=== PATIENT | male | born 1980 | race Caucasian/White ===

== ENCOUNTER 2024-04-06 18:11 | Inpatient (IN) | payer OTHER, SELFPAY ==
[~2024-04-06] VITALS: Ht 188 cm; Wt 64.4 kg
[2024-04-06] MEDS: THIAMINE 100 MG TAB PO SCH (04:13)
[2024-04-06] MEDS: NS 1,000 ML IV ONE (20:32)
[2024-04-06 20:33] LABS: BASO % 0.2 % (0.0-1.0); EOS # 0.1 10^3/uL (0.0-0.5); EOS % 0.3 % (0.0-3.0); HEMATOCRIT 37.1 % (42.0-52.0); LYMPH # 1.7 10^3/uL (1.5-5.0); LYMPH % 8.3 % (24.0-44.0); MEAN CORPUSCULAR HEMOGLOBIN 30.4 pg (27.0-33.0); MEAN CORPUSCULAR VOLUME 86.7 fl (80.0-96.0); MONO # 2.3 10^3/uL (0.0-0.8); MONO % 11.1 % (2.0-8.0); NEUTROPHILS # 16.5 10^3/uL (1.5-8.5); NEUTROPHILS % 79.4 % (36.0-66.0); PLATELET COUNT, AUTOMATED 448 10^3/uL (150-450); RED BLOOD COUNT 4.28 10^6/uL (4.30-6.10); WHITE BLOOD COUNT 20.8 10^3/uL (4.0-10.0)
[2024-04-06] MEDS: LORazepam 2 MG/ML 1ML VIAL IV STA (20:34)
[2024-04-06] MEDS: KETOROLAC 30 MG/ML 1ML VIAL IV ONE (20:34)
[2024-04-06 21:00] LABS: C REACTIVE PROTEIN QUANTITATIV 24.6 MG/DL (<1.0)
[2024-04-06 21:01] LABS: ALBUMIN 2.9 G/DL (3.2-5.2); BILIRUBIN,DIRECT 0.2 MG/DL (<0.4); BILIRUBIN,TOTAL 0.5 MG/DL (0.3-1.2); TOTAL PROTEIN 7.3 G/DL (5.7-8.2)
[2024-04-06] MEDS: CEFTAROLINE FOSAMIL 600 MG in D5W MINI-BAG PLUS 50 ML IV ONE (21:31)
[2024-04-06] MEDS ORDERED: ACETAMINOPHEN 325 MG TAB As Ordered ONE (21:53)
[2024-04-06] MEDS: ACETAMINOPHEN TAB 650MG DOSE (2X325MG) PO ONE (21:55)
[2024-04-06 23:02] LABS: PROCALCITONIN 0.43 ng/ml
[2024-04-07] MEDS ORDERED: HOME MED LIST COMPLETE! XX SCH (00:15)
[2024-04-07] MEDS ORDERED: LORazepam 2 MG TAB PO PRN (01:05)
[2024-04-07 04:21] VITALS: BP 137/67; TEMP 97.5; O2SAT 100
[2024-04-07 04:29] LABS: BASO # 0.1 10^3/uL (0.0-0.2); BASO % 0.2 % (0.0-1.0); EOS # 0.3 10^3/uL (0.0-0.5); EOS % 1.3 % (0.0-3.0); HEMATOCRIT 33.2 % (42.0-52.0); HEMOGLOBIN 11.5 g/dl (13.5-17.5); LYMPH # 2.4 10^3/uL (1.5-5.0); LYMPH % 10.9 % (24.0-44.0); MEAN CORPUSCULAR HEMOGLOBIN 30.3 pg (27.0-33.0); MEAN CORPUSCULAR HGB CONC 34.6 g/dl (32.0-36.5); MEAN CORPUSCULAR VOLUME 87.4 fl (80.0-96.0); MONO % 12.4 % (2.0-8.0); NEUTROPHILS # 16.4 10^3/uL (1.5-8.5); NEUTROPHILS % 74.6 % (36.0-66.0); PLATELET COUNT, AUTOMATED 441 10^3/uL (150-450)
[2024-04-07 04:41] LABS: BLOOD UREA NITROGEN 12 MG/DL (9-23); CALCIUM LEVEL 8.9 MG/DL (8.5-10.1); CARBON DIOXIDE LEVEL 30 MMOL/L (20-31); CHLORIDE LEVEL 98 MMOL/L (98-107); GLOMERULAR FILTRATION RATE > 60.0 (>60); GLUCOSE, FASTING 126 MG/DL (60-100); MAGNESIUM LEVEL 2.3 MG/DL (1.8-2.4); POTASSIUM SERUM 4.3 MMOL/L (3.5-5.1); SODIUM LEVEL 132 MMOL/L (136-145)
[2024-04-07 04:47] LABS: MONO # 2.7 10^3/uL (0.0-0.8)
[2024-04-07 05:30] LABS: BARBITURATES URINE NEGATIVE (NEGATIVE); BENZODIAZEPINES URINE NEGATIVE (NEGATIVE); CANNABINOIDS URINE NEGATIVE (NEGATIVE); COCAINE METABOLITE URINE NEGATIVE (NEGATIVE); OPIATES URINE NEGATIVE (NEGATIVE); PHENCYCLIDINE URINE NEGATIVE (NEGATIVE)
[2024-04-07 05:36] LABS: AMPHETAMINES LEVEL URINE POSITIVE (NEGATIVE); METHADONE URINE POSITIVE (NEGATIVE)
[2024-04-07] MEDS ORDERED: NICOTINE 14 MG/24 HR TRANSDERMAL TD PRN (06:20)
[2024-04-07] MEDS ORDERED: NICOTINE 21MG/24HR 1 EA TRANSDERMAL TD PRN (06:30)
[2024-04-07] MEDS ORDERED: KETOROLAC 30 MG/ML 1ML VIAL IV PRN (06:30)
[2024-04-07] MEDS: KETOROLAC 30 MG/ML 1ML VIAL IV PRN (06:55)
[2024-04-07] MEDS: LIDOCAINE W/EPINEPHRINE 1% 20ML VIAL SC ONE (07:16)
[2024-04-07] MEDS: MORPHINE 4 MG/ML 1ML VIAL IV ONE (07:53)
[2024-04-07] MEDS: MULTIVITAMINS/MINERALS THERAP 1 TAB PO SCH (08:08)
[2024-04-07] MEDS: FOLIC ACID 1MG TAB PO SCH (08:08)
[2024-04-07] MEDS: HEPARIN SOD (PORCINE) 5000UNITS/ML 1ML VIAL/SYRINGE SQ SCH (08:08)
[2024-04-07] MEDS: NICOTINE 21MG/24HR 1 EA TRANSDERMAL TD SCH (08:09)
[2024-04-07 10:34] LABS: ERYTHROCYTE SEDIMENTATION RATE 87 mm/hr (0-15)
[2024-04-07] MEDS: NS 1,000 ML IV SCH (10:55)
[2024-04-07] MEDS: CEFTAROLINE FOSAMIL 600 MG in D5W MINI-BAG PLUS 50 ML IV SCH (11:04)
[2024-04-07 12:00] VITALS: BP 90/57; TEMP 97.3; O2SAT 98
[2024-04-07 14:00] VITALS: BP 95/58
[2024-04-07] MEDS: ACETAMINOPHEN 500 MG TAB PO ONE (16:20)
[2024-04-07] MEDS: LORazepam 0.5 MG TAB PO ONE (16:20)
[2024-04-07 20:15] VITALS: BP 100/60; TEMP 98; O2SAT 98
[2024-04-07 23:35] VITALS: BP 102/61; TEMP 98.7; O2SAT 98
[2024-04-08] VITALS (9 sets, daily range): BP systolic 104–142; BP diastolic 61–90; TEMP 97.3–98.4; O2SAT 94–98
[2024-04-08] MEDS ORDERED: oxyCODONE 5MG TAB PO PRN (03:30)
[2024-04-08] MEDS ORDERED: fentaNYL 100 MCG/2 ML INJECTION IV PRN (03:30)
[2024-04-08] MEDS ORDERED: MEPERIDINE 25 MG/ML 1ML VIAL IV PRN (03:30)
[2024-04-08] MEDS ORDERED: ONDANSETRON 4MG 2ML VIAL IV PRN ×2 (03:30→09:20)
[2024-04-08] MEDS ORDERED: HYDROMORPHONE HCL 0.5 MG/ 0.5 ML SYRINGE IV PRN (03:30)
[2024-04-08 06:05] LABS: HEMATOCRIT 31.8 % (42.0-52.0); HEMOGLOBIN 10.6 g/dl (13.5-17.5); MEAN CORPUSCULAR HEMOGLOBIN 29.9 pg (27.0-33.0); MEAN CORPUSCULAR HGB CONC 33.3 g/dl (32.0-36.5); MEAN CORPUSCULAR VOLUME 89.8 fl (80.0-96.0); PLATELET COUNT, AUTOMATED 437 10^3/uL (150-450); RED BLOOD COUNT 3.54 10^6/uL (4.30-6.10)
[2024-04-08 06:43] LABS: BLOOD UREA NITROGEN 8 MG/DL (9-23); CALCIUM LEVEL 7.9 MG/DL (8.5-10.1); CARBON DIOXIDE LEVEL 29 MMOL/L (20-31); CHLORIDE LEVEL 105 MMOL/L (98-107); CREATININE FOR GFR 0.65 MG/DL (0.70-1.30); GLOMERULAR FILTRATION RATE > 60.0 (>60); GLUCOSE, FASTING 102 MG/DL (60-100); POTASSIUM SERUM 3.4 MMOL/L (3.5-5.1); SODIUM LEVEL 139 MMOL/L (136-145)
[2024-04-08] MEDS ORDERED: MIDAZOLAM INJ 2MG/2ML VIAL As Ordered ONE (08:19)
[2024-04-08] MEDS ORDERED: dexmedeTOMIDine (4MCG/ML)200MCG/50ML BTL (PRECEDEX) As Ordered ONE (08:19)
[2024-04-08] MEDS ORDERED: fentaNYL 100 MCG/2 ML INJECTION As Ordered ONE (08:19)
[2024-04-08] MEDS ORDERED: LIDOCAINE 2% 100MG/5ML SDV (FOR ANES.) As Ordered ONE (08:19)
[2024-04-08] MEDS ORDERED: ONDANSETRON 4MG 2ML VIAL As Ordered ONE (08:19)
[2024-04-08] MEDS ORDERED: propofoL 200 MG/20 ML VIAL As Ordered ONE (08:19)
[2024-04-08] MEDS ORDERED: ACETAMINOPHEN 1000MG 100ML IV BAG As Ordered ONE (08:23)
[2024-04-08] MEDS ORDERED: HYDROmorphone HCL 2MG/ML 1ML VIAL As Ordered ONE (08:24)
[2024-04-08] MEDS: fentaNYL 100 MCG/2 ML INJECTION IV PRN (09:12)
[2024-04-08] MEDS: LR 1,000 ML IV SCH (09:20)
[2024-04-08] MEDS: oxyCODONE 5MG TAB PO PRN (09:29)
[2024-04-08] MEDS: HYDROMORPHONE HCL 0.5 MG/ 0.5 ML SYRINGE IV PRN ×2 (09:30→17:53)
[2024-04-08] MEDS ORDERED: MEPERIDINE 25 MG/ML 1ML VIAL As Ordered ONE (10:03)
[2024-04-08] MEDS: MEPERIDINE 25 MG/ML 1ML VIAL IV STA (10:05)
[2024-04-08] MEDS: POTASSIUM CHLORIDE 10MEQ SR TABLET PO ONE (10:21)
[2024-04-08] MEDS: PANTOPRAZOLE 40MG TAB (PROTONIX) PO SCH (13:58)
[2024-04-09 01:08] VITALS: BP 126/87; TEMP 98.7; O2SAT 99
[2024-04-09 04:45] VITALS: BP 128/86; TEMP 97.6; O2SAT 95
[2024-04-09 05:56] LABS: HEMATOCRIT 29.3 % (42.0-52.0); MEAN CORPUSCULAR HEMOGLOBIN 30.2 pg (27.0-33.0); MEAN CORPUSCULAR HGB CONC 34.1 g/dl (32.0-36.5); MEAN CORPUSCULAR VOLUME 88.5 fl (80.0-96.0); PLATELET COUNT, AUTOMATED 478 10^3/uL (150-450); RED BLOOD COUNT 3.31 10^6/uL (4.30-6.10); WHITE BLOOD COUNT 16.8 10^3/uL (4.0-10.0)
[2024-04-09 06:22] LABS: BLOOD UREA NITROGEN 10 MG/DL (9-23); CALCIUM LEVEL 8.4 MG/DL (8.5-10.1); CARBON DIOXIDE LEVEL 26 MMOL/L (20-31); CHLORIDE LEVEL 105 MMOL/L (98-107); CREATININE FOR GFR 0.57 MG/DL (0.70-1.30); GLOMERULAR FILTRATION RATE > 60.0 (>60); GLUCOSE, FASTING 99 MG/DL (60-100); POTASSIUM SERUM 3.8 MMOL/L (3.5-5.1); SODIUM LEVEL 137 MMOL/L (136-145)
[2024-04-09 08:00] VITALS: BP 128/86; TEMP 97.3; O2SAT 98
[2024-04-09] MEDS ORDERED: DOCUSATE SODIUM 100MG CAPSULE PO PRN (08:50)
[2024-04-09 12:00] VITALS: BP 128/86; TEMP 97.3; O2SAT 98
[2024-04-09] MEDS: KETOROLAC TROMETHAMINE 10 MG TAB PO PRN (18:07)
[2024-04-09 20:00] VITALS: BP 130/89; TEMP 97.3; O2SAT 98
[2024-04-10] VITALS (12 sets, daily range): BP systolic 114–134; BP diastolic 73–84; TEMP 96.8–97.5; O2SAT 95–100
[2024-04-10] MEDS: HYDROMORPHONE HCL 0.5 MG/ 0.5 ML SYRINGE IV PRN (00:17)
[2024-04-10 07:23] LABS: HEMATOCRIT 33.9 % (42.0-52.0); HEMOGLOBIN 11.5 g/dl (13.5-17.5); MEAN CORPUSCULAR HEMOGLOBIN 30.1 pg (27.0-33.0); MEAN CORPUSCULAR HGB CONC 33.9 g/dl (32.0-36.5); MEAN CORPUSCULAR VOLUME 88.7 fl (80.0-96.0); PLATELET COUNT, AUTOMATED 569 10^3/uL (150-450); RED BLOOD COUNT 3.82 10^6/uL (4.30-6.10); WHITE BLOOD COUNT 11.9 10^3/uL (4.0-10.0)
[2024-04-10 07:45] LABS: BLOOD UREA NITROGEN 9 MG/DL (9-23); CALCIUM LEVEL 9.3 MG/DL (8.5-10.1); CARBON DIOXIDE LEVEL 28 MMOL/L (20-31); CHLORIDE LEVEL 105 MMOL/L (98-107); CREATININE FOR GFR 0.56 MG/DL (0.70-1.30); GLOMERULAR FILTRATION RATE > 60.0 (>60); GLUCOSE, FASTING 109 MG/DL (60-100); POTASSIUM SERUM 3.8 MMOL/L (3.5-5.1); SODIUM LEVEL 140 MMOL/L (136-145)
[2024-04-10] MEDS ORDERED: oxyCODONE 5MG TAB PO PRN (17:10)
[2024-04-10] MEDS ORDERED: fentaNYL 100 MCG/2 ML INJECTION IV PRN (17:10)
[2024-04-10] MEDS ORDERED: HYDROMORPHONE HCL 0.5 MG/ 0.5 ML SYRINGE IV PRN (17:10)
[2024-04-10] MEDS: LR 1,000 ML IV SCH (17:10)
[2024-04-10] MEDS ORDERED: ONDANSETRON 4MG 2ML VIAL IV PRN (17:10)
[2024-04-10] MEDS: cefTRIAXone SOD 1 GM in D5W MINI-BAG PLUS 50 ML IV SCH (20:17)
[2024-04-11 03:21] VITALS: BP 127/82; TEMP 97.2; O2SAT 97
[2024-04-11 05:28] LABS: HEMATOCRIT 33.4 % (42.0-52.0); HEMOGLOBIN 11.4 g/dl (13.5-17.5); MEAN CORPUSCULAR HEMOGLOBIN 29.8 pg (27.0-33.0); MEAN CORPUSCULAR HGB CONC 34.1 g/dl (32.0-36.5); MEAN CORPUSCULAR VOLUME 87.4 fl (80.0-96.0); PLATELET COUNT, AUTOMATED 573 10^3/uL (150-450); RED BLOOD COUNT 3.82 10^6/uL (4.30-6.10); WHITE BLOOD COUNT 17.6 10^3/uL (4.0-10.0)
[2024-04-11 06:00] LABS: BLOOD UREA NITROGEN 11 MG/DL (9-23); CALCIUM LEVEL 9.1 MG/DL (8.5-10.1); CARBON DIOXIDE LEVEL 31 MMOL/L (20-31); CHLORIDE LEVEL 101 MMOL/L (98-107); CREATININE FOR GFR 0.64 MG/DL (0.70-1.30); GLOMERULAR FILTRATION RATE > 60.0 (>60); GLUCOSE, FASTING 105 MG/DL (60-100); POTASSIUM SERUM 4.4 MMOL/L (3.5-5.1); SODIUM LEVEL 137 MMOL/L (136-145)
[2024-04-11 11:12] VITALS: BP 116/70; TEMP 97.5; O2SAT 96
[2024-04-11] MEDS: PERCOCET 5MG/325MG TAB PO PRN (12:36)
[2024-04-11 15:19] VITALS: BP 128/85; TEMP 98.1; O2SAT 98
[2024-04-11 20:27] VITALS: BP 131/84; TEMP 98.1; O2SAT 96
[2024-04-11] MEDS: RAMELTEON 8 MG TAB (ROZEREM) PO PRN (20:45)
[2024-04-12] MEDS ORDERED: PERMETHRIN 5% CREAM 60 GM TOP SCH
[2024-04-12 04:44] VITALS: BP 116/80; TEMP 97.9; O2SAT 98
[2024-04-12 06:20] LABS: HEMATOCRIT 34.2 % (42.0-52.0); HEMOGLOBIN 11.3 g/dl (13.5-17.5); MEAN CORPUSCULAR HEMOGLOBIN 29.7 pg (27.0-33.0); PLATELET COUNT, AUTOMATED 605 10^3/uL (150-450); WHITE BLOOD COUNT 12.7 10^3/uL (4.0-10.0)
[2024-04-12 06:56] LABS: BLOOD UREA NITROGEN 15 MG/DL (9-23); CARBON DIOXIDE LEVEL 32 MMOL/L (20-31); CHLORIDE LEVEL 105 MMOL/L (98-107); CREATININE FOR GFR 0.88 MG/DL (0.70-1.30); GLOMERULAR FILTRATION RATE > 60.0 (>60); GLUCOSE, FASTING 98 MG/DL (60-100); POTASSIUM SERUM 4.4 MMOL/L (3.5-5.1); SODIUM LEVEL 140 MMOL/L (136-145)
[2024-04-12 12:00] VITALS: BP 130/85; TEMP 97.7; O2SAT 98
[2024-04-12] MEDS: PERMETHRIN 5% CREAM 60 GM TOP ONE (17:04)
[2024-04-12 19:48] VITALS: BP 128/84; TEMP 97.9; O2SAT 98
[2024-04-12] MEDS: CEFDINIR 300 MG CAP (OMNICEF) PO SCH (20:15)
[2024-04-13 04:08] VITALS: BP 126/82; TEMP 97.7; O2SAT 97
[2024-04-13 06:15] LABS: HEMATOCRIT 34.1 % (42.0-52.0); HEMOGLOBIN 11.4 g/dl (13.5-17.5); MEAN CORPUSCULAR HGB CONC 33.4 g/dl (32.0-36.5); MEAN CORPUSCULAR VOLUME 89.7 fl (80.0-96.0); PLATELET COUNT, AUTOMATED 596 10^3/uL (150-450); WHITE BLOOD COUNT 17.3 10^3/uL (4.0-10.0)
[2024-04-13 06:40] LABS: BLOOD UREA NITROGEN 18 MG/DL (9-23); CALCIUM LEVEL 8.8 MG/DL (8.5-10.1); CARBON DIOXIDE LEVEL 32 MMOL/L (20-31); CHLORIDE LEVEL 101 MMOL/L (98-107); CREATININE FOR GFR 0.67 MG/DL (0.70-1.30); GLOMERULAR FILTRATION RATE > 60.0 (>60); GLUCOSE, FASTING 103 MG/DL (60-100); POTASSIUM SERUM 4.2 MMOL/L (3.5-5.1); SODIUM LEVEL 136 MMOL/L (136-145)
[2024-04-13 12:00] VITALS: BP 130/80; TEMP 98.1; O2SAT 98
[2024-04-13 20:14] VITALS: BP 131/80; TEMP 97.9; O2SAT 98
[2024-04-14 04:00] VITALS: BP 125/86; TEMP 97.9; O2SAT 98
[2024-04-14 06:33] LABS: HEMATOCRIT 35.2 % (42.0-52.0); HEMOGLOBIN 11.6 g/dl (13.5-17.5); MEAN CORPUSCULAR HEMOGLOBIN 29.8 pg (27.0-33.0); MEAN CORPUSCULAR VOLUME 90.5 fl (80.0-96.0); PLATELET COUNT, AUTOMATED 561 10^3/uL (150-450); RED BLOOD COUNT 3.89 10^6/uL (4.30-6.10); WHITE BLOOD COUNT 16.2 10^3/uL (4.0-10.0)
[2024-04-14 06:58] LABS: ALBUMIN 2.8 G/DL (3.2-5.2); ALKALINE PHOSPHATASE 86 U/L (46-116); ALT/SGPT 281 U/L (7.0-40); AST/SGOT 198 U/L (<34); BILIRUBIN,TOTAL 0.2 MG/DL (0.3-1.2); BLOOD UREA NITROGEN 14 MG/DL (9-23); CALCIUM LEVEL 9.5 MG/DL (8.5-10.1); CARBON DIOXIDE LEVEL 30 MMOL/L (20-31); CHLORIDE LEVEL 102 MMOL/L (98-107); CREATININE FOR GFR 0.59 MG/DL (0.70-1.30); GLOMERULAR FILTRATION RATE > 60.0 (>60); GLUCOSE, FASTING 87 MG/DL (60-100); POTASSIUM SERUM 4.5 MMOL/L (3.5-5.1); SODIUM LEVEL 139 MMOL/L (136-145); TOTAL PROTEIN 6.7 G/DL (5.7-8.2)
[2024-04-14 12:04] VITALS: BP 123/83; TEMP 98.2; O2SAT 96
[2024-04-14] MEDS ORDERED: PENICILLIN G POTASSIUM 5 MU IV 5 MU in D5W MINI-BAG PLUS 100 ML IV SCH (14:50)
[2024-04-14] MEDS: PENICILLIN V POTASSIUM 500 MG TAB PO SCH (18:06)
[2024-04-14 19:52] VITALS: BP 108/81; TEMP 98.1
[2024-04-14] MEDS: PERCOCET 5MG/325MG TAB PO PRN (21:25)
[2024-04-14 21:41] VITALS: BP 108/81; TEMP 98.1; O2SAT 96
[2024-04-15 05:10] VITALS: BP 115/82; TEMP 98.1
[2024-04-15 06:20] LABS: HEMATOCRIT 35.3 % (42.0-52.0); HEMOGLOBIN 11.8 g/dl (13.5-17.5); MEAN CORPUSCULAR HEMOGLOBIN 30.3 pg (27.0-33.0); MEAN CORPUSCULAR HGB CONC 33.4 g/dl (32.0-36.5); MEAN CORPUSCULAR VOLUME 90.7 fl (80.0-96.0); PLATELET COUNT, AUTOMATED 525 10^3/uL (150-450); RED BLOOD COUNT 3.89 10^6/uL (4.30-6.10)
[2024-04-15 06:49] LABS: ALKALINE PHOSPHATASE 89 U/L (46-116); ALT/SGPT 223 U/L (7.0-40); AST/SGOT 75 U/L (<34); BILIRUBIN,TOTAL 0.2 MG/DL (0.3-1.2); BLOOD UREA NITROGEN 19 MG/DL (9-23); CALCIUM LEVEL 9.1 MG/DL (8.5-10.1); CARBON DIOXIDE LEVEL 33 MMOL/L (20-31); CHLORIDE LEVEL 99 MMOL/L (98-107); CREATININE FOR GFR 0.68 MG/DL (0.70-1.30); GLOMERULAR FILTRATION RATE > 60.0 (>60); GLUCOSE, FASTING 77 MG/DL (60-100); POTASSIUM SERUM 4.5 MMOL/L (3.5-5.1); SODIUM LEVEL 137 MMOL/L (136-145); TOTAL PROTEIN 6.8 G/DL (5.7-8.2)
[2024-04-15 06:58] LABS: ATYPICAL LYMPH 8 % (0-5); EOSINOPHILS 2 % (0-3); LYMPHOCYTES 24 % (16-44); MONOCYTES 13 % (0-5); NEUTROPHILS 53 % (28-66); PLATELET ESTIMATE INCREASED (NORMAL); POIKILOCYTOSIS 1+; POLYCHROMASIA 1+
[2024-04-15] MEDS: THIAMINE 100 MG TAB PO SCH (08:08)
[2024-04-15 12:00] VITALS: BP 118/81; TEMP 98.1; O2SAT 97
[2024-04-15 21:27] VITALS: BP 123/82; TEMP 97.2; O2SAT 96
[2024-04-16 04:00] VITALS: BP 123/83; TEMP 97.3; O2SAT 97
[2024-04-16 06:21] LABS: HEMOGLOBIN 11.4 g/dl (13.5-17.5); MEAN CORPUSCULAR HEMOGLOBIN 30.1 pg (27.0-33.0); MEAN CORPUSCULAR HGB CONC 33.5 g/dl (32.0-36.5); MEAN CORPUSCULAR VOLUME 89.7 fl (80.0-96.0); PLATELET COUNT, AUTOMATED 479 10^3/uL (150-450); RED BLOOD COUNT 3.79 10^6/uL (4.30-6.10); WHITE BLOOD COUNT 14.5 10^3/uL (4.0-10.0)
[2024-04-16 06:41] LABS: C REACTIVE PROTEIN QUANTITATIV < 0.40 MG/DL (<1.0)
[2024-04-16 06:43] LABS: ALKALINE PHOSPHATASE 79 U/L (46-116); ALT/SGPT 175 U/L (7.0-40); AST/SGOT 53 U/L (<34); BILIRUBIN,TOTAL 0.2 MG/DL (0.3-1.2); BLOOD UREA NITROGEN 21 MG/DL (9-23); CARBON DIOXIDE LEVEL 30 MMOL/L (20-31); CHLORIDE LEVEL 102 MMOL/L (98-107); CREATININE FOR GFR 0.64 MG/DL (0.70-1.30); GLOMERULAR FILTRATION RATE > 60.0 (>60); GLUCOSE, FASTING 94 MG/DL (60-100); POTASSIUM SERUM 4.4 MMOL/L (3.5-5.1); SODIUM LEVEL 138 MMOL/L (136-145); TOTAL PROTEIN 6.7 G/DL (5.7-8.2)
[2024-04-16 12:00] VITALS: BP 118/81; TEMP 98; O2SAT 96
[2024-04-16 20:50] VITALS: BP 127/82; TEMP 97.2
[2024-04-17 04:31] VITALS: BP 120/81; TEMP 97.7
[2024-04-17 05:43] VITALS: BP 122/85; TEMP 97.7; O2SAT 96
[2024-04-17 12:00] VITALS: BP 121/80; TEMP 96.8; O2SAT 94
[2024-04-17 20:37] VITALS: BP 120/86; TEMP 98.6
[2024-04-18 04:26] VITALS: BP 114/82; TEMP 97.3
[2024-04-18 06:18] LABS: HEMATOCRIT 34.3 % (42.0-52.0); HEMOGLOBIN 11.3 g/dl (13.5-17.5); MEAN CORPUSCULAR HEMOGLOBIN 30.1 pg (27.0-33.0); MEAN CORPUSCULAR HGB CONC 32.9 g/dl (32.0-36.5); MEAN CORPUSCULAR VOLUME 91.5 fl (80.0-96.0); PLATELET COUNT, AUTOMATED 474 10^3/uL (150-450); RED BLOOD COUNT 3.75 10^6/uL (4.30-6.10); WHITE BLOOD COUNT 13.8 10^3/uL (4.0-10.0)
[2024-04-18 06:57] LABS: ALBUMIN 3.1 G/DL (3.2-5.2); ALKALINE PHOSPHATASE 72 U/L (46-116); ALT/SGPT 126 U/L (7.0-40); AST/SGOT 39 U/L (<34); BILIRUBIN,TOTAL 0.2 MG/DL (0.3-1.2); BLOOD UREA NITROGEN 21 MG/DL (9-23); CALCIUM LEVEL 9.5 MG/DL (8.5-10.1); CARBON DIOXIDE LEVEL 32 MMOL/L (20-31); CHLORIDE LEVEL 101 MMOL/L (98-107); GLOMERULAR FILTRATION RATE > 60.0 (>60); GLUCOSE, FASTING 97 MG/DL (60-100); POTASSIUM SERUM 4.3 MMOL/L (3.5-5.1); SODIUM LEVEL 138 MMOL/L (136-145); TOTAL PROTEIN 6.7 G/DL (5.7-8.2)
[2024-04-18] MEDS: LACTOBACILLUS ACIDOPHILUS CAP (BACID) PO SCH (08:25)
[2024-04-18 12:00] VITALS: BP 118/80; TEMP 97.1; O2SAT 96
[2024-04-18 16:19] VITALS: BP 146/73
[2024-04-18 20:46] VITALS: BP 124/87; TEMP 98.2
[2024-04-18 21:26] VITALS: BP 124/87; TEMP 98.2; O2SAT 96
[2024-04-19 04:00] VITALS: BP 132/80; TEMP 97.7; O2SAT 96
[2024-04-19 06:17] LABS: HEMATOCRIT 33.7 % (42.0-52.0); HEMOGLOBIN 11.2 g/dl (13.5-17.5); MEAN CORPUSCULAR HEMOGLOBIN 30.3 pg (27.0-33.0); MEAN CORPUSCULAR HGB CONC 33.2 g/dl (32.0-36.5); MEAN CORPUSCULAR VOLUME 91.1 fl (80.0-96.0); PLATELET COUNT, AUTOMATED 444 10^3/uL (150-450); WHITE BLOOD COUNT 11.1 10^3/uL (4.0-10.0)
[2024-04-19 06:58] LABS: ALKALINE PHOSPHATASE 72 U/L (46-116); ALT/SGPT 98 U/L (7.0-40); AST/SGOT 25 U/L (<34); BILIRUBIN,TOTAL 0.2 MG/DL (0.3-1.2); BLOOD UREA NITROGEN 25 MG/DL (9-23); CALCIUM LEVEL 9.1 MG/DL (8.5-10.1); CARBON DIOXIDE LEVEL 30 MMOL/L (20-31); CHLORIDE LEVEL 103 MMOL/L (98-107); CREATININE FOR GFR 0.65 MG/DL (0.70-1.30); GLOMERULAR FILTRATION RATE > 60.0 (>60); GLUCOSE, FASTING 95 MG/DL (60-100); POTASSIUM SERUM 4.1 MMOL/L (3.5-5.1); SODIUM LEVEL 138 MMOL/L (136-145); TOTAL PROTEIN 6.4 G/DL (5.7-8.2)
[2024-04-19 12:00] VITALS: BP 121/86; TEMP 97.5; O2SAT 98
[2024-04-19] MEDS: PERMETHRIN 5% CREAM 60 GM TOP ONE (17:24)
[2024-04-19 19:30] VITALS: BP 117/75; TEMP 98.2; O2SAT 97
[2024-04-20] VITALS (9 sets, daily range): BP systolic 106–142; BP diastolic 54–77; TEMP 97.5–98.2; O2SAT 94–98
[2024-04-20 06:28] LABS: HEMATOCRIT 33.9 % (42.0-52.0); HEMOGLOBIN 11.3 g/dl (13.5-17.5); MEAN CORPUSCULAR HGB CONC 33.3 g/dl (32.0-36.5); MEAN CORPUSCULAR VOLUME 89.9 fl (80.0-96.0); PLATELET COUNT, AUTOMATED 438 10^3/uL (150-450); RED BLOOD COUNT 3.77 10^6/uL (4.30-6.10); WHITE BLOOD COUNT 11.3 10^3/uL (4.0-10.0)
[2024-04-20] MEDS ORDERED: SUGAMMADEX SODIUM 500 MG/5 ML VIAL (BRIDION) As Ordered ONE (06:49)
[2024-04-20] MEDS ORDERED: ROCURONIUM BROMIDE 50MG/5ML VIAL As Ordered ONE (06:49)
[2024-04-20 06:51] LABS: ALBUMIN 3.1 G/DL (3.2-5.2); ALKALINE PHOSPHATASE 66 U/L (46-116); ALT/SGPT 91 U/L (7.0-40); AST/SGOT 24 U/L (<34); BILIRUBIN,TOTAL 0.2 MG/DL (0.3-1.2); BLOOD UREA NITROGEN 19 MG/DL (9-23); CALCIUM LEVEL 9.6 MG/DL (8.5-10.1); CARBON DIOXIDE LEVEL 31 MMOL/L (20-31); CHLORIDE LEVEL 106 MMOL/L (98-107); CREATININE FOR GFR 0.63 MG/DL (0.70-1.30); GLOMERULAR FILTRATION RATE > 60.0 (>60); GLUCOSE, FASTING 99 MG/DL (60-100); POTASSIUM SERUM 4.1 MMOL/L (3.5-5.1); SODIUM LEVEL 141 MMOL/L (136-145); TOTAL PROTEIN 6.7 G/DL (5.7-8.2)
[2024-04-20] MEDS ORDERED: ESMOLOL INJ 100MG/10ML VIAL As Ordered ONE (08:12)
[2024-04-20] MEDS: GENTAMICIN SULF 80MG/2ML VIAL As Ordered ONE (08:32)
[2024-04-20] MEDS: EPINEPHrine INJ 1 MG/ML 1ML AMP As Ordered ONE (08:32)
[2024-04-20] MEDS ORDERED: LABETALOL 100MG/20ML VIAL As Ordered ONE (08:41)
[2024-04-20] MEDS ORDERED: MEPERIDINE 50 MG/ML 1ML VIAL As Ordered ONE (09:06)
[2024-04-20] MEDS ORDERED: ONDANSETRON 4MG 2ML VIAL IV PRN (09:45)
[2024-04-20] MEDS: LR 1,000 ML IV SCH (09:45)
[2024-04-20] MEDS ORDERED: oxyCODONE 5MG TAB PO PRN (09:45)
[2024-04-20] MEDS ORDERED: fentaNYL 100 MCG/2 ML INJECTION IV PRN (09:45)
[2024-04-20] MEDS ORDERED: HYDROMORPHONE HCL 0.5 MG/ 0.5 ML SYRINGE IV PRN (09:45)
[2024-04-20] MEDS: ACETAMINOPHEN TAB 650MG DOSE (2X325MG) PO PRN (13:26)
[2024-04-20] MEDS ORDERED: MORPHINE 2 MG/ML 1ML VIAL IV PRN (18:15)
[2024-04-21 00:03] VITALS: BP 128/85; TEMP 98.1; O2SAT 96
[2024-04-21 04:00] VITALS: BP 124/83; TEMP 97.9; O2SAT 97
[2024-04-21 06:28] LABS: HEMATOCRIT 31.6 % (42.0-52.0); HEMOGLOBIN 10.5 g/dl (13.5-17.5); MEAN CORPUSCULAR HEMOGLOBIN 30.4 pg (27.0-33.0); MEAN CORPUSCULAR HGB CONC 33.2 g/dl (32.0-36.5); MEAN CORPUSCULAR VOLUME 91.6 fl (80.0-96.0); PLATELET COUNT, AUTOMATED 414 10^3/uL (150-450); RED BLOOD COUNT 3.45 10^6/uL (4.30-6.10); WHITE BLOOD COUNT 11.6 10^3/uL (4.0-10.0)
[2024-04-21 07:05] LABS: ALKALINE PHOSPHATASE 59 U/L (46-116); ALT/SGPT 70 U/L (7.0-40); AST/SGOT 16 U/L (<34); BILIRUBIN,TOTAL 0.2 MG/DL (0.3-1.2); BLOOD UREA NITROGEN 18 MG/DL (9-23); CALCIUM LEVEL 9.2 MG/DL (8.5-10.1); CARBON DIOXIDE LEVEL 30 MMOL/L (20-31); CHLORIDE LEVEL 108 MMOL/L (98-107); CREATININE FOR GFR 0.63 MG/DL (0.70-1.30); GLOMERULAR FILTRATION RATE > 60.0 (>60); GLUCOSE, FASTING 97 MG/DL (60-100); POTASSIUM SERUM 3.8 MMOL/L (3.5-5.1); SODIUM LEVEL 141 MMOL/L (136-145); TOTAL PROTEIN 6.3 G/DL (5.7-8.2)
[2024-04-21 08:36] VITALS: BP 125/84; TEMP 97.9; O2SAT 95
[2024-04-21 12:34] VITALS: BP 126/84; TEMP 97.7; O2SAT 95
[2024-04-21 16:00] VITALS: BP 122/76; TEMP 98.2; O2SAT 91
[2024-04-21 20:32] VITALS: BP 137/91; TEMP 98.2; O2SAT 98
[2024-04-22 04:35] VITALS: BP 105/75; TEMP 98.1; O2SAT 96
[2024-04-22 08:37] VITALS: BP 133/82; TEMP 98.1; O2SAT 97
[2024-04-22] MEDS: DOXYCYCLINE HYCLATE 100MG TABLET PO ONE (11:03)
[2024-04-22 12:05] VITALS: BP 128/79; TEMP 98.1; O2SAT 97
[2024-04-22] MEDS: CEPHALEXIN 500 MG CAP PO SCH (14:49)
[2024-04-22 16:16] VITALS: BP 123/79; TEMP 98.1; O2SAT 97
[2024-04-22 19:43] VITALS: BP 117/75; TEMP 97.9; O2SAT 97
[2024-04-22] MEDS: DOXYCYCLINE HYCLATE 100MG TABLET PO SCH (21:02)
[2024-04-23 04:00] VITALS: BP 118/80; TEMP 97.5; O2SAT 97
[2024-04-23 06:25] LABS: HEMATOCRIT 34.3 % (42.0-52.0); HEMOGLOBIN 11.3 g/dl (13.5-17.5); MEAN CORPUSCULAR HEMOGLOBIN 30.3 pg (27.0-33.0); MEAN CORPUSCULAR HGB CONC 32.9 g/dl (32.0-36.5); PLATELET COUNT, AUTOMATED 408 10^3/uL (150-450); RED BLOOD COUNT 3.73 10^6/uL (4.30-6.10); WHITE BLOOD COUNT 9.8 10^3/uL (4.0-10.0)
[2024-04-23 06:54] LABS: ALKALINE PHOSPHATASE 60 U/L (46-116); ALT/SGPT 62 U/L (7.0-40); AST/SGOT 18 U/L (<34); BILIRUBIN,TOTAL 0.3 MG/DL (0.3-1.2); BLOOD UREA NITROGEN 14 MG/DL (9-23); CARBON DIOXIDE LEVEL 30 MMOL/L (20-31); CHLORIDE LEVEL 107 MMOL/L (98-107); CREATININE FOR GFR 0.63 MG/DL (0.70-1.30); GLOMERULAR FILTRATION RATE > 60.0 (>60); GLUCOSE, FASTING 89 MG/DL (60-100); POTASSIUM SERUM 4.2 MMOL/L (3.5-5.1); SODIUM LEVEL 139 MMOL/L (136-145); TOTAL PROTEIN 6.4 G/DL (5.7-8.2)
[2024-04-23] MEDS: PERCOCET 5MG/325MG TAB PO PRN (12:12)
[2024-04-24 03:50] VITALS: BP 122/90; TEMP 98.1; O2SAT 98
[2024-04-24 06:36] LABS: HEMATOCRIT 35.3 % (42.0-52.0); HEMOGLOBIN 11.6 g/dl (13.5-17.5); MEAN CORPUSCULAR HEMOGLOBIN 30.1 pg (27.0-33.0); MEAN CORPUSCULAR HGB CONC 32.9 g/dl (32.0-36.5); MEAN CORPUSCULAR VOLUME 91.5 fl (80.0-96.0); PLATELET COUNT, AUTOMATED 408 10^3/uL (150-450); RED BLOOD COUNT 3.86 10^6/uL (4.30-6.10); WHITE BLOOD COUNT 10.3 10^3/uL (4.0-10.0)
[2024-04-24 07:11] LABS: ALKALINE PHOSPHATASE 64 U/L (46-116); ALT/SGPT 51 U/L (7.0-40); AST/SGOT 11 U/L (<34); BILIRUBIN,TOTAL 0.3 MG/DL (0.3-1.2); BLOOD UREA NITROGEN 16 MG/DL (9-23); CALCIUM LEVEL 9.2 MG/DL (8.5-10.1); CARBON DIOXIDE LEVEL 30 MMOL/L (20-31); CHLORIDE LEVEL 104 MMOL/L (98-107); CREATININE FOR GFR 0.67 MG/DL (0.70-1.30); GLOMERULAR FILTRATION RATE > 60.0 (>60); GLUCOSE, FASTING 85 MG/DL (60-100); POTASSIUM SERUM 4.2 MMOL/L (3.5-5.1); SODIUM LEVEL 138 MMOL/L (136-145); TOTAL PROTEIN 6.5 G/DL (5.7-8.2)
[2024-04-25 05:23] VITALS: BP 125/87; TEMP 97.7; O2SAT 95
[2024-04-26 05:32] VITALS: BP 117/83; TEMP 97.5; O2SAT 96
[2024-04-27 04:15] VITALS: BP 116/83; TEMP 97.7; O2SAT 96
[2024-04-27] MEDS ORDERED: BACT800T5 PO (14:12)
[2024-04-27] MEDS ORDERED: PERCOCET PO (14:12)
[2024-04-27] MEDS ORDERED: RISATAB3 PO (14:12)
[2024-04-27] MEDS ORDERED: PANT40TA29 PO (14:12)
[2024-04-27] MEDS ORDERED: NICO21PAT TD (14:12)
[2024-04-27] MEDS ORDERED: FOLI1TAB11 PO (14:12)
[2024-04-27] MEDS ORDERED: THIA100TA PO (14:12)
[2024-04-27 16:23] VITALS: O2SAT 98
== END 2024-04-27 16:30 | disposition home or self-care (01) | DRG 710 ==
LOC: M ED 18:11 → M ED INP 04-07 00:58 → EEVIPCON 04-07 00:58 → M MSPAV 04-07 04:13 → M MS5PR 04-11 15:02
PROVIDERS: ADMIT Student in an Organized Health Care Education/Training Program; ATTEND Internal Medicine Nephrology
PROC: 2W2RX4Z Dressing of Left Lower Leg using Bandage (ICD-10-PCS; 2024-04-10)
PROC: 0JBN0ZZ Excision of Right Lower Leg Subcutaneous Tissue and Fascia, Open Approach (ICD-10-PCS; 2024-04-11)
PROC: 0YU Anatomical Regions, Lower Extremities, Supplement (ICD-10-PCS; principal; 2024-04-20 07:30)
PROC: 0HDLXZZ Extraction of Left Lower Leg Skin, External Approach (ICD-10-PCS; 2024-04-20 07:30)
DX: A41.9 Sepsis, unspecified organism (principal); R64 Cachexia; E44.0 Moderate protein-calorie malnutrition; E87.1 Hypo-osmolality and hyponatremia; L03.116 Cellulitis of left lower limb; L97.929 Non-pressure chronic ulcer of unspecified part of left lower leg with unspecified severity; F17.210 Nicotine dependence, cigarettes, uncomplicated; Z59.00 Homelessness unspecified; Z68.1 Body mass index [BMI] 19.9 or less, adult; F10.10 Alcohol abuse, uncomplicated; Z20.7 Contact with and (suspected) exposure to pediculosis, acariasis and other infestations; F15.90 Other stimulant use, unspecified, uncomplicated; R21 Rash and other nonspecific skin eruption; I89.0 Lymphedema, not elsewhere classified; F12.90 Cannabis use, unspecified, uncomplicated; K59.00 Constipation, unspecified; L88 Pyoderma gangrenosum; R63.4 Abnormal weight loss; D64.9 Anemia, unspecified; B95.5 Unspecified streptococcus as the cause of diseases classified elsewhere

== ENCOUNTER → 2024-05-18 | Outpatient (REF) | payer MEDICAID, OTHER ==
[~2024-05-18] MED LIST: BACT800T5 PO; FOLI1TAB11 PO; NICO21PAT TD; PANT40TA29 PO; PERCOCET PO; RISATAB3 PO; THIA100TA PO
== END ==
LOC: M LAB REF 12:23
PROVIDERS: ATTEND Physician Assistant
DX: L97.929 Non-pressure chronic ulcer of unspecified part of left lower leg with unspecified severity (principal); S81.802D Unspecified open wound, left lower leg, subsequent encounter